=== PATIENT | male | born 1945 | race Caucasian/White ===

== ENCOUNTER 2018-07-04 04:14 | Observation (INO) | payer MEDICARE, OTHER ==
[2018-07-04] MEDS ORDERED: Sodium Chloride 0.9% 10 ML Syringe FLUSH PRN (04:41)
[2018-07-04] MEDS ORDERED: Sodium Chloride 0.9% 1,000 ML IV ONE (04:41)
--- NOTE | 2018-07-04 04:47 | EDM.PDOC ---
<Danielle Hutchins - Last Filed: 07/04/18 06:36> ED HPI GENERAL MEDICAL PROBLEM - General Chief Complaint: General Stated Complaint: dizzy, weak, constipation Time Seen by Provider: 07/04/18 04:30 Source of Information: Reports: Patient, Family History Limitations: Reports: No Limitations - History of Present Illness INITIAL COMMENTS - FREE TEXT/NARRATIVE: Patient comes into the emergency department with complaint of constipation and urinary retention. Patient states he recently had a tooth extracted and has been placed on amoxicillin and hydrocodone. He's has noticed a decrease in his stool output as well as them being more hard and difficulty to pass. Is also noted over the course the last couple days a he's been having more difficulty urinating- he states it does burning and he does have some urgency with a significant amount hesitation. Denies any fevers, chest pain, shortness of breath, headache, nausea, vomiting, or swelling in lower extremities. Onset: Gradual Lower Abdomen Pain Score (Numeric/FACES): 5 - Related Data Allergies Allergy/AdvReac Type Severity Reaction Status Date / Time No Known Allergies Allergy Verified 07/04/18 04:15 Home Meds: Home Meds Carvedilol 3.125 mg PO DAILY 07/04/18 [History] Losartan [Cozaar] 25 mg PO DAILY 07/04/18 [History] Spironolactone [Aldactone] 25 mg PO DAILY 07/04/18 [History] Past Medical History Cardiovascular History: Reports: High Cholesterol, Hypertension Gastrointestinal History: Reports: Hiatal Hernia Other Gastrointestinal History: Abnormal liver function test Musculoskeletal History: Reports: Back Pain, Chronic Psychiatric History: Reports: Anxiety, Depression Other Dermatologic History: Rosacea Social & Family History - Family History Family Medical History: Noncontributory - Tobacco Use Smoking Status *Q: Former Smoker Used Tobacco, but Quit: Yes Month/Year Tobacco Last Used: 1979 - Caffeine Use Caffeine Use: Reports: Coffee ED ROS GENERAL - Review of Systems Review Of Systems: See Below Constitutional: Reports: Weakness, Fatigue, Decreased Appetite HEENT: Reports: No Symptoms Respiratory: Reports: No Symptoms Cardiovascular: Reports: No Symptoms Endocrine: Reports: No Symptoms GI/Abdominal: Reports: Abdominal Pain, Constipation, Distension. Denies: Nausea , Vomiting : Reports: Pain, Urgency, Urinary Retention Musculoskeletal: Reports: No Symptoms Skin: Reports: No Symptoms Neurological: Reports: No Symptoms Psychiatric: Reports: No Symptoms Hematologic/Lymphatic: Reports: No Symptoms Immunologic: Reports: No Symptoms ED EXAM, GENERAL - Physical Exam Exam: See Below Exam Limited By: No Limitations General Appearance: Alert, WD/WN, No Apparent Distress Respiratory/Chest: No Respiratory Distress, Lungs Clear, Normal Breath Sounds, No Accessory Muscle Use, Chest Non-Tender Cardiovascular: Normal Peripheral Pulses, Regular Rate, Rhythm GI/Abdominal: Distended, Tender, Abnormal Bowel Sounds Back Exam: Normal Inspection, Full Range of Motion Extremities: Normal Inspection, Normal Range of Motion, Non-Tender, Normal Capillary Refill Neurological: Alert, Oriented, Normal Cognition Psychiatric: Normal Affect, Normal Mood Skin Exam: Warm, Dry, Intact, Normal Color, No Rash Course - Vital Signs Last Recorded V/S: Last Vital Signs Temp 35.1 C L 07/04/18 05:58 Pulse 70 07/04/18 05:58 Resp 18 07/04/18 05:58 BP 113/67 07/04/18 05:58 Pulse Ox 99 07/04/18 05:58 - Orders/Labs/Meds Orders: Active Orders 24 hr Category Date Time Status Admission Status [Patient Status] [ADT] Routine ADT 07/04/18 07:28 Ordered Abdomen Pelvis wo Cont [CT] Stat Exams 07/04/18 04:40 Taken Sodium Chloride 0.9% [Saline Flush] Med 07/04/18 04:41 Active 10 ml FLUSH ASDIRECTED PRN Peripheral IV Insertion Adult [OM.PC] Stat Oth 07/04/18 04:41 Ordered Medication Orders Sodium Chloride (Saline Flush) 10 ml FLUSH ASDIRECTED PRN PRN Reason: Keep Vein Open Labs: Laboratory Tests 07/04/18 07/04/18 07/04/18 Range/Units 04:50 05:29 05:29 WBC 2.2 L (4.0-10.0) x10^3/uL RBC 3.46 L (4.5-6.0) x10^6/uL Hgb 10.4 L D (14.0-18.0) g/dL Hct 28.4 L (40.0-52.0) % MCV 82.1 D (78.0-93.0) fL MCH 30.1 (26.0-32.0) pg MCHC 36.6 H (32.0-36.0) g/dL RDW Coeff of Hedy 12.1 (10.0-15.0) % Plt Count 242 D (130-400) x10^3/uL Neut % (Auto) 49.0 L (50.0-80.0) % Lymph % (Auto) 35.2 (25.0-50.0) % [place] % (Auto) 12.5 H (2.0-11.0) % Eos % (Auto) 2.8 (0.0-4.0) % Baso % (Auto) 0.5 (0.2-1.2) % Sodium 122 L* (136-145) mmol/L Potassium 4.5 D (3.5-5.1) mmol/L Chloride 88 L (98-107) mmol/L Carbon Dioxide 26 D (21-32) mmol/L Anion Gap 12.5 (10-20) mmol/L BUN 9 (7-18) mg/dL Creatinine 0.8 (0.70-1.30) mg/dL Est Cr Clr Drug Dosing 63.41 mL/min Estimated GFR (MDRD) > 60 Glucose 94 (74-106) mg/dL Calcium 9.2 (8.5-10.1) mg/dL Corrected Calcium 9.84 (8.5-10.1) mg/dL Total Bilirubin 0.8 (0.2-1.0) mg/dL AST 25 (15-37) U/L ALT 25 (16-63) U/L Alkaline Phosphatase 138 H (46-116) U/L Total Protein 7.0 (6.4-8.2) g/dL Albumin 3.2 L (3.4-5.0) g/dL Globulin 3.8 Albumin/Globulin Ratio 0.84 Urine Color Yellow (YELLOW) Urine Appearance Clear (CLEAR) Urine pH 7.0 (5.0-8.0) Ur Specific [place] 1.010 Urine Protein Negative (NEGATIVE) mg/dL Urine Glucose (UA) Negative (NEGATIVE) mg/dL Urine Ketones Negative (NEGATIVE) mg/dL Urine Occult Blood Negative (NEGATIVE) Urine Nitrite Negative (NEGATIVE) Urine Bilirubin Negative (NEGATIVE) Urine Urobilinogen 0.2 (0.2) EU/dL Ur Leukocyte Esterase Negative (NEGATIVE) Meds: Medications Generic Name Dose Route Start Last Admin Trade Name Cedric PRN Reason Stop Dose Admin Sodium Chloride 10 ml 07/04/18 04:41 Saline Flush FLUSH ASDIRECTED PRN Keep Vein Open Discontinued Medications Generic Name Dose Route Start Last Admin Trade Name Freq PRN Reason Stop Dose Admin Sodium Chloride 1,000 mls @ 1,000 mls/hr 07/04/18 04:41 07/04/18 06:07 Normal Saline IV 07/04/18 05:40 1,000 mls/hr ONETIME ONE Administration Departure - Departure Disposition: Refer to Observation Clinical Impression: Hyponatremia, Acute urinary retention Hypotension Qualifiers: Hypotension type: unspecified hypotension type Qualified Code(s): I95.9 - Hypotension, unspecified Constipated Qualifiers: Constipation type: unspecified constipation type Qualified Code(s): K59.00 - Constipation, unspecified - Discharge Information - Problem List Review Problem List Initiated/Reviewed/Updated: Yes - My Orders Last 24 Hours: My Active Orders 07/04/18 07:28 Admission Status [Patient Status] [ADT] Routine - Assessment/Plan Admission H&P: Please use this note as an admission H&P Last 24 Hours: My Active Orders 07/04/18 07:28 Admission Status [Patient Status] [ADT] Routine Assessment:: 1. urinary retention with urgency and hesitation 2. abdominal pain 3. constipation 4. hypotension Plan: 1. Labs completed in the ER. results reviewed with the pt 2. CT scan completed in the ER. Results reviewed with the pt 3. Bladder scan completed in ER >400mls found 4. Straight cath and UA completed 5. IV fluids given for patients for initial hypotension and hyponatremia . <Teddy Browning - Last Filed: 07/04/18 07:35> Course - Radiology Interpretation Free Text/Narrative:: CT Abd/Pelvis: No acute abdominal pathology is identified; moderate fecal burden ; no colon lesion identified See scanned report in EMR for details CT Results Date: 07/04/18 CT Results Time: 06:38 Departure - Departure Time of Disposition: 07:33 Condition: Good (hyponatrem) - Assessment/Plan Admission H&P: Please use this note as an admission H&P Assessment:: Hyponatremia Plan: Patient will be admitted Observation for IVF hydration, GI meds. Anticipation of admission <48 hours. Bladder scan PRN for urinary retention. Recheck labs in AM. If stable, will probably discharge. Monitor vitals for hypotension.
[2018-07-04 05:54] LABS: CHLORIDE,CL 88 mmol/L (98-107)
[2018-07-04 05:56] LABS: ANION GAP 12.5 mmol/L (10-20); SODIUM,NA 122 mmol/L (136-145)
[2018-07-04] MEDS ORDERED: Ondansetron 4 MG Tab.DIS PO PRN (07:52)
[2018-07-04] MEDS ORDERED: Magnesium Hydroxide 400 MG/5 ML Susp 30 ML Cup PO PRN (07:52)
[2018-07-04] MEDS ORDERED: Polyethylene Glycol 3350 Powder 17 GM Packet PO PRN (07:52)
[2018-07-04] MEDS ORDERED: Docusate Sodium 100 MG Cap PO PRN (07:52)
[2018-07-04] MEDS ORDERED: Ondansetron 4 MG/2 ML SDV IVPUSH PRN (07:58)
[2018-07-04] MEDS ORDERED: Metoclopramide 10 MG/2 ML SDV IVPUSH ONE ×2 (07:59→15:41)
[2018-07-04] MEDS: Sodium Chloride 0.9% 1,000 ML IV SCH ×2 (08:29→18:20)
--- NOTE | 2018-07-04 10:05 | CT ---
[id number] CT/CT Abdomen Pelvis WO IV EXAM: ABDOMEN AND PELVIS CT WITHOUT CONTRAST INDICATION: Constipation, urinary retention and abdominal pain. COMPARISON: January 16, 2018. DISCUSSION: Minimal residual sliding type hiatus hernia with correction of a large hiatus hernia and gastric volvulus. Mild to moderately elevated stool volume throughout the colon. There are few fluid-filled nondilated distal small bowel loops, a nonspecific finding. 4.5 mm indeterminate noncalcified right lower lobe pulmonary nodule (image 3 series 2). This was not included in [id number] the prior examination. The gallbladder, pancreas, liver, spleen, adrenal glands, kidneys and appendix are unremarkable. No adenopathy, free air free fluid. Degenerative changes in the spine with a mild to moderate convex right mid lumbar curvature. IMPRESSION: 1. Mild to moderately elevated colonic stool volume. Denton Yang MD 07/04/18 [id number] Thank you for allowing us to participate in the care of your patient.
[2018-07-04] MEDS ORDERED: Magnesium Citrate Solution 296 ML Bottle PO ONE (15:42)
[2018-07-05] MEDS: Sodium Chloride 0.9% 1,000 ML IV SCH ×2 (04:26→15:04)
[2018-07-05 07:58] LABS: CHLORIDE,CL 94 mmol/L (98-107)
[2018-07-05 08:13] LABS: ANION GAP 11.2 mmol/L (10-20); SODIUM,NA 126 mmol/L (136-145)
[2018-07-05] MEDS ORDERED: Losartan 25 MG Tab PO SCH (09:00)
[2018-07-05] MEDS: Multivitamins with Iron/Calcium/Folic Acid/Minerals Tab PO SCH (09:39)
[2018-07-05] MEDS: Carvedilol 12.5 MG Tab PO SCH ×2 (09:39→20:53)
[2018-07-05] MEDS: Thiamine 100 MG Tab PO SCH ×2 (09:40→20:54)
[2018-07-05] MEDS: Magnesium Oxide 400 MG Tab PO SCH (09:40)
--- NOTE | 2018-07-05 10:11 | PCM.PN ---
- General Info Date of Service: 07/05/18 Admission Dx/Problem (Free Text): Patient comes into the emergency department with complaint of constipation and urinary retention. Patient states he recently had a tooth extracted and has been placed on amoxicillin and hydrocodone. He's has noticed a decrease in his stool output as well as them being more hard and difficulty to pass. Is also noted over the course the last couple days a he's been having more difficulty urinating- he states it does burning and he does have some urgency with a significant amount hesitation. Denies any fevers, chest pain, shortness of breath, headache, nausea, vomiting, or swelling in lower extremities. Subjective Update: Patient states he is feeling better. He started having BM's last night after PO meds. He states his urination has increased. He has not been out of bed ambulating. He is currently not having any pain. He continues to have some colicky abdominal pain. Denies any fever or chills. He is tolerating his diet ok , but needs to eat soft foods 2/2 recent dental extractions. Otherwise, patient offers no specific complaints. Functional Status: Reports: Pain Controlled, Tolerating Diet, Urinating. Denies : New Symptoms Pain Score: 0 - Review of Systems General: Denies: Fever, Chills Pulmonary: Denies: Shortness of Breath, Cough Cardiovascular: Denies: Chest Pain, Palpitations Gastrointestinal: Reports: Abdominal Pain, Constipation. Denies: Nausea, Vomiting Genitourinary: Reports: Retention Skin: Reports: No Symptoms Neurological: Reports: No Symptoms - Patient Data Vitals - Most Recent: Last Vital Signs Temp 36.7 C 07/05/18 06:00 Pulse 69 07/05/18 09:39 Resp 16 07/05/18 06:00 BP 111/66 07/05/18 09:39 Pulse Ox 100 07/05/18 06:00 Weight - Most Recent: 56.699 kg I&O - Last 24 Hours: Intake & Output 07/04/18 07/05/18 07/05/18 22:59 06:59 14:59 Intake Total 1237 1555 Output Total 300 300 Balance 937 1255 Lab Results Last 24 Hours: Laboratory Results - last 24 hr 07/05/18 07/05/18 Range/Units 07:33 07:33 WBC 3.2 L (4.0-10.0) x10^3/uL RBC 3.16 L (4.5-6.0) x10^6/uL Hgb 9.4 L (14.0-18.0) g/dL Hct 26.3 L (40.0-52.0) % MCV 83.2 (78.0-93.0) fL MCH 29.7 (26.0-32.0) pg MCHC 35.7 (32.0-36.0) g/dL RDW Coeff of Hedy 12.3 (10.0-15.0) % Plt Count 221 (130-400) x10^3/uL Neut % (Auto) 61.2 (50.0-80.0) % Lymph % (Auto) 27.6 (25.0-50.0) % [place] % (Auto) 10.3 (2.0-11.0) % Eos % (Auto) 0.6 (0.0-4.0) % Baso % (Auto) 0.3 (0.2-1.2) % Sodium 126 L* (136-145) mmol/L Potassium 4.2 (3.5-5.1) mmol/L Chloride 94 L (98-107) mmol/L Carbon Dioxide 25 (21-32) mmol/L Anion Gap 11.2 (10-20) mmol/L BUN 7 (7-18) mg/dL Creatinine 0.6 L (0.70-1.30) mg/dL Est Cr Clr Drug Dosing 86.62 mL/min Estimated GFR (MDRD) > 60 Glucose 82 (74-106) mg/dL Calcium 8.2 L (8.5-10.1) mg/dL Med Orders - Current: Current Medications Carvedilol (Coreg) 12.5 mg PO BID JAYESH Last Admin: 07/05/18 09:39 Dose: 12.5 mg Docusate Sodium (Colace) 100 mg PO BID PRN PRN Reason: Constipation Last Admin: 07/04/18 08:38 Dose: 100 mg Sodium Chloride (Normal Saline) 1,000 mls @ 100 mls/hr IV ASDIRECTED JAYESH Last Admin: 07/05/18 04:26 Dose: 100 mls/hr Losartan Potassium (Cozaar) 25 mg PO DAILY [facility] Magnesium Hydroxide (Milk Of Magnesia) 30 ml PO Q12H PRN PRN Reason: Constipation Magnesium Oxide (Magnesium Oxide) 400 mg PO DAILY [facility] Last Admin: 07/05/18 09:40 Dose: 400 mg Multivitamins/Minerals (Thera M Plus) 1 tab PO DAILY [facility] Last Admin: 07/05/18 09:39 Dose: 1 tab Ondansetron HCl (Zofran Odt) 4 mg PO Q6H PRN PRN Reason: nausea, able to take PO Ondansetron HCl (Zofran) 4 mg IVPUSH Q8H PRN PRN Reason: Nausea Polyethylene Glycol (Miralax) 17 gm PO DAILY PRN PRN Reason: Constipation Last Admin: 07/04/18 08:38 Dose: 17 gm Sodium Chloride (Saline Flush) 10 ml FLUSH ASDIRECTED PRN PRN Reason: Keep Vein Open Thiamine HCl (Vitamin B-1) 100 mg PO BID [facility] Last Admin: 07/05/18 09:40 Dose: 100 mg Discontinued Medications Sodium Chloride (Normal Saline) 1,000 mls @ 1,000 mls/hr IV ONETIME ONE Stop: 07/04/18 05:40 Last Admin: 07/04/18 06:07 Dose: 1,000 mls/hr Magnesium Citrate (Citrate Of Magnesia) 296 ml PO ONETIME ONE Stop: 07/04/18 15:43 Last Admin: 07/04/18 17:15 Dose: 296 ml Metoclopramide HCl (Reglan) 10 mg IVPUSH ONETIME ONE Stop: 07/04/18 08:00 Last Admin: 07/04/18 08:34 Dose: 10 mg Metoclopramide HCl (Reglan) 10 mg IVPUSH ONETIME ONE Stop: 07/04/18 15:42 Last Admin: 07/04/18 17:20 Dose: 10 mg - Exam Quality Assessment: No: Skin Breakdown General: Alert, Oriented, Cooperative, No Acute Distress Lungs: Clear to Auscultation, Normal Respiratory Effort Cardiovascular: Regular Rate, Regular Rhythm GI/Abdominal Exam: Soft, Tender (generalized mild tenderness), Abnormal Bowel Sounds (Hypoactive) Peripheral Pulses: 2+: Radial (L), Radial (R) Skin: Warm, Dry, Intact Neurological: No New Focal Deficit - Problem List & Annotations (1) Acute urinary retention SNOMED Code(s): 229139818 Code(s): R33.8 - OTHER RETENTION OF URINE Status: Acute Priority: Medium Current Visit: Yes (2) Constipated SNOMED Code(s): 93518014 Code(s): K59.00 - CONSTIPATION, UNSPECIFIED Status: Acute Priority: Medium Current Visit: Yes Qualifiers: Constipation type: unspecified constipation type Qualified Code(s): K59.00 - Constipation, unspecified (3) Hyponatremia SNOMED Code(s): 33330864 Code(s): E87.1 - HYPO-OSMOLALITY AND HYPONATREMIA Status: Acute Priority : Medium Current Visit: Yes (4) Hypotension SNOMED Code(s): 96689500 Code(s): I95.9 - HYPOTENSION, UNSPECIFIED Status: Acute Priority: High Current Visit: Yes Qualifiers: Hypotension type: unspecified hypotension type Qualified Code(s): I95.9 - Hypotension, unspecified (5) Abdominal pain SNOMED Code(s): 08956232 Code(s): R10.9 - UNSPECIFIED ABDOMINAL PAIN Status: Acute Priority: High Current Visit: Yes Qualifiers: Abdominal location: generalized Qualified Code(s): R10.84 - Generalized abdominal pain - Problem List Review Problem List Initiated/Reviewed/Updated: Yes - My Orders Last 24 Hours: My Active Orders 07/05/18 09:00 Carvedilol [Coreg] 12.5 mg PO BID Losartan [Cozaar] 25 mg PO DAILY Thiamine [Vitamin B-1] 100 mg PO BID 07/05/18 09:15 Magnesium Oxide 400 mg PO DAILY Multivitamins w-Iron/Ca/FA/Min [Thera M Plus] 1 tab PO DAILY - Assessment Assessment:: Abdominal Pain Urinary retention Hyponatremia Hypotension Constipation - Plan Plan:: Continue with IVF to increase NA levels. Needs to get out of bed and ambulation several times a day. Continue with bowel meds. Encourage PO intake. Anticipate discharge home tomorrow if NA is normal. Code III. Will to transfer if needs arise.
[2018-07-06] MEDS: Sodium Chloride 0.9% 1,000 ML IV SCH ×2 (00:19→10:14)
[2018-07-06 07:09] LABS: CHLORIDE,CL 93 mmol/L (98-107)
[2018-07-06 07:39] LABS: ANION GAP 10.9 mmol/L (10-20); SODIUM,NA 124 mmol/L (136-145)
[2018-07-06] MEDS: Thiamine 100 MG Tab PO SCH (07:50)
[2018-07-06] MEDS: Magnesium Oxide 400 MG Tab PO SCH (07:50)
[2018-07-06] MEDS: Multivitamins with Iron/Calcium/Folic Acid/Minerals Tab PO SCH (07:50)
[2018-07-06] MEDS: Carvedilol 12.5 MG Tab PO SCH (07:51)
[2018-07-06] MEDS ORDERED: Losartan 50 MG Tab PO SCH (08:00)
--- NOTE | 2018-07-06 14:24 | PCM.DCSUM1 ---
Discharge Summary - Hospital Course HPI Initial Comments: Patient comes into the emergency department 2 days ago for complaints of constipation and urinary retention. Patient states he recently had a tooth extracted and has been placed on amoxicillin and hydrocodone. He's has noticed a decrease in his stool output as well as them being more hard and difficulty to pass. Is also noted over the course the last couple days a he's been having more difficulty urinating- he states it does burning and he does have some urgency with a significant amount hesitation. Denies any fevers, chest pain, shortness of breath, headache, nausea, vomiting, or swelling in lower extremities. Patient was admitted for acute on chronic hyponatremia, dehydration , constipation, and urinary retention. Diagnosis: Stroke: No Modified [place] Scale: No Symptoms at All Modified [place] Scale Score: 0 - Discharge Data Discharge Date: 07/06/18 Discharge Disposition: Home, Self-Care 01 Condition: Good - Discharge Diagnosis/Problem(s) (1) Acute urinary retention SNOMED Code(s): 245756636 ICD Code: R33.8 - OTHER RETENTION OF URINE Status: Resolved Priority: Medium Current Visit: Yes (2) Constipated SNOMED Code(s): 87860064 ICD Code: K59.00 - CONSTIPATION, UNSPECIFIED Status: Chronic Priority: Medium Current Visit: Yes Qualifiers: Constipation type: unspecified constipation type Qualified Code(s): K59.00 - Constipation, unspecified (3) Hyponatremia SNOMED Code(s): 43343010 ICD Code: E87.1 - HYPO-OSMOLALITY AND HYPONATREMIA Status: Chronic Priority: Medium Current Visit: Yes (4) Hypotension SNOMED Code(s): 38281559 ICD Code: I95.9 - HYPOTENSION, UNSPECIFIED Status: Resolved Priority: High Current Visit: Yes Qualifiers: Hypotension type: unspecified hypotension type Qualified Code(s): I95.9 - Hypotension, unspecified (5) Abdominal pain SNOMED Code(s): 99348184 ICD Code: R10.9 - UNSPECIFIED ABDOMINAL PAIN Status: Resolved Priority: High Current Visit: Yes Qualifiers: Abdominal location: generalized Qualified Code(s): R10.84 - Generalized abdominal pain - Patient Summary/Data Operative Procedure(s) Performed: None Labs Pending at D/C: None Recommended Follow-up Testing/Procedures: Labs at follow up visit with PCP Planned Operative Procedure(s) after DC: None Hospital Course: Patient remained hemodynamically stable and afebrile. Blood pressures remained low, so Aldactone was stopped. Patient continued with Coreg and Cozaar. Patient was given Mag Citrate, MiraLax, and other BM meds which resolved his constipation. No focal neurological deficits. No chest pain or SOB. Abdominal pain resolved. Patient urinating well at time of discharge. No issues with diet , still needed soft foods due to recent dental extractions. Ambulating back to baseline. Sodium is chronically low and patient did not have any hyponatremic symptoms. Will have this addressed again at follow up visit with PCP. Other blood work remained stable. - Patient Instructions Diet: Heart Healthy Diet Activity: As Tolerated, Rest and Relax Today Driving: Do Not Drive Showering/Bathing: May Shower Notify Provider of: Fever, Increased Pain, Nausea and/or Vomiting - Discharge Plan *PRESCRIPTION DRUG MONITORING PROGRAM REVIEWED*: Not Applicable *COPY OF PRESCRIPTION DRUG MONITORING REPORT IN PATIENT LU: Not Applicable Prescriptions/Med Rec: Polyethylene Glycol 3350 [MiraLAX] 1 packet PO DAILY PRN 30 Days #1 box PRN Reason: Constipation Home Medications: Home Meds Carvedilol 1 tab PO BID 07/04/18 [History] Magnesium Oxide [Magnesium] 400 mg PO DAILY 07/04/18 [History] Multivitamin [Multi-Vitamin Daily] 1 each PO DAILY 07/04/18 [History] Thiamine [Vitamin B-1] 100 mg PO BID 07/04/18 [History] Losartan Potassium [Cozaar] 50 mg PO DAILY 07/05/18 [History] Polyethylene Glycol 3350 [MiraLAX] 1 packet PO DAILY PRN 30 Days #1 box [Rx] Oxygen Therapy Mode: Room Air Patient Handouts: Constipation, Adult, Hyponatremia Referrals: Lata Rashid NP [Primary Care Provider] - 07/10/18 11:00 am (FOLLOW UP APPOINTMENT WITH LATA RASHID, TUESDAY JULY 10, 2018 AT 11:00 AM AT THE [facility]) - Discharge Summary/Plan Comment DC Time >30 min.: No Discharge Summary/Plan Comment: Patient will be discharged home today. Stop Aldactone. Continue other meds the same. Start daily MiraLax. Will have patient follow up with Lata Rashid this Friday for a recheck. Recommend rechecking BMP during f/u appt. - General Info Date of Service: 07/06/18 Admission Dx/Problem (Free Text: Patient comes into the emergency department with complaint of constipation and urinary retention. Patient states he recently had a tooth extracted and has been placed on amoxicillin and hydrocodone. He's has noticed a decrease in his stool output as well as them being more hard and difficulty to pass. Is also noted over the course the last couple days a he's been having more difficulty urinating- he states it does burning and he does have some urgency with a significant amount hesitation. Denies any fevers, chest pain, shortness of breath, headache, nausea, vomiting, or swelling in lower extremities. Subjective Update: Patient states he is feeling better. He started having BM's last night after PO meds. He states his urination has increased. He has not been out of bed ambulating. He is currently not having any pain. He continues to have some colicky abdominal pain. Denies any fever or chills. He is tolerating his diet ok , but needs to eat soft foods 2/2 recent dental extractions. Otherwise, patient offers no specific complaints. Functional Status: Reports: Pain Controlled, Tolerating Diet, Ambulating, Urinating. Denies: New Symptoms Numeric/FACES Score: 0 - Review of Systems General: Denies: Fever, Chills Pulmonary: Denies: Shortness of Breath, Cough Cardiovascular: Denies: Chest Pain, Palpitations Gastrointestinal: Denies: Abdominal Pain, Nausea, Vomiting Skin: Reports: No Symptoms Neurological: Reports: No Symptoms - Patient Data Vitals - Most Recent: Last Vital Signs Temp 36.4 C 07/06/18 13:30 Pulse 67 07/06/18 13:30 Resp 14 07/06/18 13:30 BP 99/58 L 07/06/18 13:30 Pulse Ox 100 07/06/18 13:30 Weight - Most Recent: 56.699 kg I&O - Last 24 hours: Intake & Output 07/05/18 07/06/18 07/06/18 22:59 06:59 14:59 Intake Total 1816 1897 360 Output Total 1100 1000 Balance 716 897 360 Lab Results - Last 24 hrs: Laboratory Results - last 24 hr 07/06/18 07/06/18 07/06/18 Range/Units 06:30 06:30 06:30 WBC 3.8 L (4.0-10.0) x10^3/uL RBC 3.06 L (4.5-6.0) x10^6/uL Hgb 9.1 L (14.0-18.0) g/dL Hct 25.8 L (40.0-52.0) % MCV 84.3 (78.0-93.0) fL MCH 29.7 (26.0-32.0) pg MCHC 35.3 (32.0-36.0) g/dL RDW Coeff of Hedy 12.4 (10.0-15.0) % Plt Count 190 (130-400) x10^3/uL Neut % (Auto) 63.1 (50.0-80.0) % Lymph % (Auto) 23.1 L (25.0-50.0) % [place] % (Auto) 12.0 H (2.0-11.0) % Eos % (Auto) 1.3 (0.0-4.0) % Baso % (Auto) 0.5 (0.2-1.2) % Sodium 124 L* (136-145) mmol/L Potassium 3.9 (3.5-5.1) mmol/L Chloride 93 L (98-107) mmol/L Carbon Dioxide 24 (21-32) mmol/L Anion Gap 10.9 (10-20) mmol/L BUN 4 L (7-18) mg/dL Creatinine 0.5 L (0.70-1.30) mg/dL Est Cr Clr Drug Dosing 103.95 mL/min Estimated GFR (MDRD) > 60 Glucose 84 (74-106) mg/dL Calcium 8.0 L (8.5-10.1) mg/dL Phosphorus 2.9 (2.6-4.7) mg/dL Magnesium 1.8 (1.8-2.4) mg/dL Med Orders - Current: Current Medications Carvedilol (Coreg) 12.5 mg PO BID [facility] Last Admin: 07/06/18 07:51 Dose: 12.5 mg Docusate Sodium (Colace) 100 mg PO BID PRN PRN Reason: Constipation Last Admin: 07/04/18 08:38 Dose: 100 mg Sodium Chloride (Normal Saline) 1,000 mls @ 100 mls/hr IV ASDIRECTED [facility] Last Admin: 07/06/18 10:14 Dose: 100 mls/hr Losartan Potassium (Cozaar) 50 mg PO DAILY [facility] Last Admin: 07/06/18 07:50 Dose: 50 mg Magnesium Hydroxide (Milk Of Magnesia) 30 ml PO Q12H PRN PRN Reason: Constipation Magnesium Oxide (Magnesium Oxide) 400 mg PO DAILY [facility] Last Admin: 07/06/18 07:50 Dose: 400 mg Multivitamins/Minerals (Thera M Plus) 1 tab PO DAILY [facility] Last Admin: 07/06/18 07:50 Dose: 1 tab Ondansetron HCl (Zofran Odt) 4 mg PO Q6H PRN PRN Reason: nausea, able to take PO Ondansetron HCl (Zofran) 4 mg IVPUSH Q8H PRN PRN Reason: Nausea Pharmacy Consult (Consult To Pharmacy) 1 each .XX ASDIRECTED [facility] Polyethylene Glycol (Miralax) 17 gm PO DAILY PRN PRN Reason: Constipation Last Admin: 07/04/18 08:38 Dose: 17 gm Sodium Chloride (Saline Flush) 10 ml FLUSH ASDIRECTED PRN PRN Reason: Keep Vein Open Thiamine HCl (Vitamin B-1) 100 mg PO BID [facility] Last Admin: 07/06/18 07:50 Dose: 100 mg Discontinued Medications Sodium Chloride (Normal Saline) 1,000 mls @ 1,000 mls/hr IV ONETIME ONE Stop: 07/04/18 05:40 Last Admin: 07/04/18 06:07 Dose: 1,000 mls/hr Magnesium Citrate (Citrate Of Magnesia) 296 ml PO ONETIME ONE Stop: 07/04/18 15:43 Last Admin: 07/04/18 17:15 Dose: 296 ml Metoclopramide HCl (Reglan) 10 mg IVPUSH ONETIME ONE Stop: 07/04/18 08:00 Last Admin: 07/04/18 08:34 Dose: 10 mg Metoclopramide HCl (Reglan) 10 mg IVPUSH ONETIME ONE Stop: 07/04/18 15:42 Last Admin: 07/04/18 17:20 Dose: 10 mg - Exam Quality Assessment: Denies: DVT Prophylaxis, Skin Breakdown General: Reports: Alert, Oriented, Cooperative, No Acute Distress Lungs: Reports: Clear to Auscultation, Normal Respiratory Effort Cardiovascular: Reports: Regular Rate, Regular Rhythm GI/Abdominal Exam: Normal Bowel Sounds, Soft, Non-Tender Skin: Reports: Warm, Dry, Intact Neurological: Reports: No New Focal Deficit *Q Meaningful Use (DIS) - VTE *Q VTE Mechanical Contraindications *Q: At Risk for Falls
== END 2018-07-06 15:45 | disposition home or self-care (01) ==
LOC: VM.ED 04:14 → VM.MS 07:28
PROVIDERS: ADMIT Nurse Practitioner Family; ATTEND Nurse Practitioner Family
DX: K59.09 Other constipation (principal); E87.1 Hypo-osmolality and hyponatremia; E86.0 Dehydration; I95.9 Hypotension, unspecified; R33.9 Retention of urine, unspecified; R39.15 Urgency of urination; R10.84 Generalized abdominal pain; R39.11 Hesitancy of micturition; I10 Essential (primary) hypertension; E78.00 Pure hypercholesterolemia, unspecified; Z87.891 Personal history of nicotine dependence; Z79.899 Other long term (current) drug therapy
CPT/HCPCS: 36415; 51701; 51798; 74176; 80048; 80053; 81003; 83735; 84100; 85025; 96360; 96361; 99284; A9270; J2765; J7030; 99217; 99220; 99225

== ENCOUNTER 2018-07-12 21:14 | Emergency (ER) | payer MEDICARE, OTHER ==
--- NOTE | 2018-07-12 21:20 | EDM.PDOC ---
ED HPI GENERAL MEDICAL PROBLEM - General Chief Complaint: Genitourinary Problem Stated Complaint: Unable to urinate Time Seen by Provider: 07/12/18 21:16 - History of Present Illness INITIAL COMMENTS - FREE TEXT/NARRATIVE: Patient presents to the ED at [facility] complaining of not being able to void urine. He states the last time he urinated was a day and a half ago. He has a history of urination problems in the past. He can not exactly remembers what those issues are. He has seen a Urologist in the past. He states his lower pelvic area "feels full." Onset Date: 07/11/18 - Related Data Allergies Allergy/AdvReac Type Severity Reaction Status Date / Time No Known Allergies Allergy Verified 07/04/18 04:15 Home Meds: Home Meds Carvedilol 1 tab PO BID 07/04/18 [History] Magnesium Oxide [Magnesium] 400 mg PO DAILY 07/04/18 [History] Multivitamin [Multi-Vitamin Daily] 1 each PO DAILY 07/04/18 [History] Thiamine [Vitamin B-1] 100 mg PO BID 07/04/18 [History] Losartan Potassium [Cozaar] 50 mg PO DAILY 07/05/18 [History] Polyethylene Glycol 3350 [MiraLAX] 1 packet PO DAILY PRN 30 Days #1 box [Rx] Past Medical History HEENT History: Reports: Cataract Cardiovascular History: Reports: High Cholesterol, Hypertension Gastrointestinal History: Reports: Hiatal Hernia Other Gastrointestinal History: Abnormal liver function test Musculoskeletal History: Reports: Back Pain, Chronic, Fracture Other Musculoskeletal History: Ankle FX Psychiatric History: Reports: Anxiety, Depression Other Dermatologic History: Rosacea - Past Surgical History HEENT Surgical History: Reports: Eye Surgery, Retinal Other HEENT Surgeries/Procedures: difficulty seeing out of right eye GI Surgical History: Reports: Other (See Below) Other GI Surgeries/Procedures: HX h hernia repair with G-tube in 01/2018 G tube removed Social & Family History - Family History Family Medical History: Noncontributory - Caffeine Use Caffeine Use: Reports: Coffee ED ROS GENERAL - Review of Systems Review Of Systems: See Below Constitutional: Denies: Fever, Chills Respiratory: Denies: Shortness of Breath, Cough Cardiovascular: Denies: Chest Pain, Palpitations GI/Abdominal: Denies: Abdominal Pain, Nausea, Vomiting : Reports: Pain, Urinary Retention Skin: Reports: No Symptoms Neurological: Reports: No Symptoms ED EXAM, RENAL/ - Physical Exam Exam: See Below Exam Limited By: No Limitations General Appearance: Alert, No Apparent Distress Respiratory/Chest: No Respiratory Distress, Lungs Clear, Normal Breath Sounds Cardiovascular: Normal Peripheral Pulses, Regular Rate, Rhythm GI/Abdominal: Normal Bowel Sounds, Soft, Tender (lower pelvic) Neurological: Alert, Oriented Skin Exam: Warm, Dry, Intact, Normal Color Course - Orders/Labs/Meds Orders: Active Orders 24 hr Category Date Time Status Bladder Scan [RC] ONETIME Care 07/12/18 21:18 Active Hodge Catheter Insertion [Insert Urinary Catheter] [OM. Care 07/12/18 21:43 Ordered PC] Stat Labs: Laboratory Tests 07/12/18 Range/Units 21:43 Urine Color Yellow (YELLOW) Urine Appearance Clear (CLEAR) Urine pH 8.0 (5.0-8.0) Ur Specific [place] 1.015 Urine Protein Negative (NEGATIVE) mg/dL Urine Glucose (UA) Negative (NEGATIVE) mg/dL Urine Ketones Negative (NEGATIVE) mg/dL Urine Occult Blood Negative (NEGATIVE) Urine Nitrite Negative (NEGATIVE) Urine Bilirubin Negative (NEGATIVE) Urine Urobilinogen 0.2 (0.2) EU/dL Ur Leukocyte Esterase Negative (NEGATIVE) Departure - Departure Time of Disposition: 21:55 Disposition: Home, Self-Care 01 Condition: Good Clinical Impression: Acute urinary retention, Status post insertion of Hodge catheter - Discharge Information *PRESCRIPTION DRUG MONITORING PROGRAM REVIEWED*: Not Applicable *COPY OF PRESCRIPTION DRUG MONITORING REPORT IN PATIENT LU: Not Applicable Instructions: Indwelling Urinary Catheter Care, Adult, Acute Urinary Retention , Male Referrals: Nina Peña [employer] [Ordering Only Provider] - Forms: ED Department Discharge Additional Instructions: 1. Stay well hydrated and rest 2. Hodge catheter will stay in place until seen by PCP 3. Make appointment to see Nina Peña for tomorrow - Problem List Review Problem List Initiated/Reviewed/Updated: Yes - My Orders Last 24 Hours: My Active Orders 07/12/18 21:18 Bladder Scan [RC] ONETIME 07/12/18 21:43 Hodge Catheter Insertion [Insert Urinary Catheter] [OM.PC] Stat - Assessment/Plan Last 24 Hours: My Active Orders 07/12/18 21:18 Bladder Scan [RC] ONETIME 07/12/18 21:43 Hodge Catheter Insertion [Insert Urinary Catheter] [OM.PC] Stat Assessment:: Acute Urinary Retention Plan: Will insert hodge catheter and add a leg bag. UA normal. Will have patient see PCP tomorrow as he needs a urology consult for urinary retention. Patient agrees with POC and wishes to proceed.
== END 2018-07-12 22:05 | disposition home or self-care (01) ==
LOC: VM.ED 21:14
DX: R33.8 Other retention of urine (principal); E78.00 Pure hypercholesterolemia, unspecified; I10 Essential (primary) hypertension; F41.9 Anxiety disorder, unspecified; F32.9 Major depressive disorder, single episode, unspecified; Z79.899 Other long term (current) drug therapy; Z96.0 Presence of urogenital implants
CPT/HCPCS: 51702; 51798; 81003; 99283

== ENCOUNTER 2022-12-22 09:07 | Emergency (ER) | payer MEDICARE, OTHER ==
[2022-12-22] MEDS ORDERED: Take Home: Amoxicillin/Clavulanate K 875-125 MG Tab, 2 Tab Pack PO ONE (09:19)
== END 2022-12-22 09:35 | disposition home or self-care (01) ==
LOC: VM.ED 09:07
DX: L08.9 Local infection of the skin and subcutaneous tissue, unspecified (principal); I10 Essential (primary) hypertension; Z79.899 Other long term (current) drug therapy
CPT/HCPCS: 99283; A9270

== ENCOUNTER 2023-01-12 21:00 | Emergency (ER) | payer MEDICARE, OTHER ==
[2023-01-12 22:12] VITALS: BP 128/75; PULSE 87
[2023-01-13 06:59] LABS: BACTERIA,URINE POC NOT SEEN (NOT SEEN); MUCUS,URINE POC NOT SEEN (NOT SEEN); RBC,URINE POC 0-5 /HPF (NOT SEEN); SQUAMOUS EPITHELIAL CELLS,UR P RARE /HPF (NOT SEEN); WBC,URINE POC 0-5 /HPF (NOT SEEN)
== END 2023-01-12 21:55 | disposition home or self-care (01) ==
LOC: VM.ED 21:00
DX: R33.9 Retention of urine, unspecified (principal); I10 Essential (primary) hypertension; E78.00 Pure hypercholesterolemia, unspecified; Z79.899 Other long term (current) drug therapy
CPT/HCPCS: 51701; 51798; 81015; 99283

== ENCOUNTER 2024-05-06 18:09 | Emergency (ER) | payer MEDICARE, OTHER ==
[2024-05-06 18:37] LABS: BASOPHILS PERCENT AUTO 0.1 % (0.2-1.2); EOSINOPHILS PERCENT AUTO 0.3 % (0.0-4.0); HEMOGLOBIN 11.5 g/dL (14.0-18.0); IMMATURE GRAN ABSOLUTE AUTO 0.02 x10^3/uL (0.00-0.07); LYMPHOCYTES ABSOLUTE AUTO 0.6 x10^3/uL (1.0-4.8); LYMPHOCYTES PERCENT AUTO 4.7 % (25.0-50.0); MEAN CORPUSCULAR HEMOGLOBIN 30.3 pg (26.0-32.0); MEAN CORPUSCULAR HGB CONC 35.9 g/dL (32.0-36.0); MEAN CORPUSCULAR VOLUME 84.2 fL (78.0-93.0); MONOCYTES ABSOLUTE AUTO 0.5 x10^3/uL (0.0-0.8); MONOCYTES PERCENT AUTO 4.1 % (2.0-11.0); NEUTROPHILS ABSOLUTE AUTO 10.7 x10^3/uL (1.8-7.7); NEUTROPHILS PERCENT AUTO 90.6 % (50.0-80.0); WHITE BLOOD CELL COUNT,WBC 11.8 x10^3/uL (4.0-10.0)
[2024-05-06 18:45] LABS: PLATELET COUNT,PLT 127 x10^3/uL (130-400)
[2024-05-06 18:50] LABS: APPEARANCE,URINE CLEAR (CLEAR); BILIRUBIN,URINE NEGATIVE (NEGATIVE); COLOR,URINE YELLOW (YELLOW); GLUCOSE,URINE NEGATIVE (NEGATIVE); KETONES,URINE NEGATIVE (NEGATIVE); LEUKOCYTE ESTERASE,URINE NEGATIVE (NEGATIVE); NITRITE,URINE NEGATIVE (NEGATIVE); OCCULT BLOOD,URINE NEGATIVE (NEGATIVE); PROTEIN,URINE NEGATIVE (NEGATIVE); UROBILINOGEN,URINE 0.2 EU/dL (0.2)
[2024-05-06 19:03] LABS: A/G RATIO 0.69; ALBUMIN 2.7 g/dL (3.4-5.0); BILIRUBIN TOTAL 1.5 mg/dL (0.2-1.0); CREATININE 0.9 mg/dL (0.70-1.30); EST CRCL DRUG DOSING (CG) 62.13 mL/min; POTASSIUM,K 4.9 mmol/L (3.5-5.1); PROTEIN TOTAL,TP 6.6 g/dL (6.4-8.2)
[2024-05-06 19:04] LABS: ANION GAP 8.9 mmol/L (5-15)
[2024-05-06] MEDS: Sodium Chloride 0.9% 1,000 ML IV ONE (20:25)
[2024-05-06] MEDS: Iopamidol 612 MG/ML 100 ML Bottle IVPUSH ONE (21:38)
[2024-05-06] MEDS: cefTRIAXone 2 GM Vial IVPUSH ONE (22:09)
[2024-05-06] MEDS: Azithromycin 500 MG in Sodium Chloride 0.9% 250 ML IV ONE (23:10)
== END 2024-05-07 00:05 | disposition short-term general hospital (02) ==
LOC: VM.ED 18:09
DX: G93.40 Encephalopathy, unspecified (principal); R33.9 Retention of urine, unspecified; J18.9 Pneumonia, unspecified organism; K44.9 Diaphragmatic hernia without obstruction or gangrene; I10 Essential (primary) hypertension; E78.5 Hyperlipidemia, unspecified
CPT/HCPCS: 36415; 51702; 70450; 71045; 80053; 81003; 83605; 85025; 87040; 96361; 96365; 96375; 99285; J0456; J0696; J7030; J7050; Q9967; 71260; 99284

== ENCOUNTER 2024-05-30 15:45 | Emergency (ER) | payer MEDICARE, OTHER ==
[2024-05-30 16:24] LABS: BASOPHILS PERCENT AUTO 0.8 % (0.2-1.2); EOSINOPHILS ABSOLUTE AUTO 0.1 x10^3/uL (0.0-0.5); EOSINOPHILS PERCENT AUTO 1.3 % (0.0-4.0); HEMATOCRIT 32.5 % (40.0-52.0); HEMOGLOBIN 11.7 g/dL (14.0-18.0); IMMATURE GRAN ABSOLUTE AUTO 0.02 x10^3/uL (0.00-0.07); LYMPHOCYTES ABSOLUTE AUTO 0.5 x10^3/uL (1.0-4.8); LYMPHOCYTES PERCENT AUTO 9.8 % (25.0-50.0); MEAN CORPUSCULAR VOLUME 83.3 fL (78.0-93.0); MONOCYTES ABSOLUTE AUTO 0.4 x10^3/uL (0.0-0.8); MONOCYTES PERCENT AUTO 7.9 % (2.0-11.0); NEUTROPHILS ABSOLUTE AUTO 4.2 x10^3/uL (1.8-7.7); NEUTROPHILS PERCENT AUTO 79.8 % (50.0-80.0); WHITE BLOOD CELL COUNT,WBC 5.2 x10^3/uL (4.0-10.0)
[2024-05-30 16:32] LABS: PLATELET COUNT,PLT 242 x10^3/uL (130-400)
[2024-05-30 16:44] LABS: APPEARANCE,URINE SLIGHTLY CLOUDY (CLEAR); BILIRUBIN,URINE NEGATIVE (NEGATIVE); COLOR,URINE LIGHT YELLOW (YELLOW); GLUCOSE,URINE NEGATIVE (NEGATIVE); KETONES,URINE NEGATIVE (NEGATIVE); LEUKOCYTE ESTERASE,URINE MODERATE (NEGATIVE); NITRITE,URINE NEGATIVE (NEGATIVE); OCCULT BLOOD,URINE MODERATE (NEGATIVE); PH,URINE 7.5 (5.0-8.0); PROTEIN,URINE NEGATIVE (NEGATIVE); UROBILINOGEN,URINE 0.2 EU/dL (0.2)
[2024-05-30 16:46] LABS: A/G RATIO 0.71; ALANINE AMINOTRANSFERASE,ALT 26 U/L (16-63); ALBUMIN 2.7 g/dL (3.4-5.0); ALKALINE PHOSPHATASE 119 U/L (46-116); ASPARTATE AMNIOTRANSFERASE,AST 25 U/L (15-37); BILIRUBIN TOTAL 1.1 mg/dL (0.2-1.0); BLOOD UREA NITROGEN,BUN 7 mg/dL (7-18); C-REACTIVE PROTEIN 1.09 mg/dL (<=0.50); CALCIUM 8.8 mg/dL (8.5-10.1); CARBON DIOXIDE,CO2 32 mmol/L (21-32); CHLORIDE,CL 89 mmol/L (98-107); CREATININE 0.8 mg/dL (0.70-1.30); GLUCOSE RANDOM 95 mg/dL (70-99); POTASSIUM,K 3.6 mmol/L (3.5-5.1); PROTEIN TOTAL,TP 6.5 g/dL (6.4-8.2)
[2024-05-30 16:50] LABS: ANION GAP 7.6 mmol/L (5-15); ESTIMATED GFR 89 mL/min (>=60)
[2024-05-30 16:51] LABS: SODIUM,NA 125 mmol/L (136-145)
[2024-05-30 16:53] LABS: BACTERIA,URINE RARE /HPF (NOT SEEN); RBC,URINE 0-5 /HPF (NOT SEEN); SQUAMOUS EPITHELIAL CELLS,UR RARE /HPF (NOT SEEN)
[2024-05-30 16:54] LABS: CALCIUM OXALATE CRYSTALS,URINE RARE /HPF (NOT SEEN); YEAST BUDDING,URINE MODERATE /HPF (NONE - FEW); YEAST HYPHAE,URINE FEW /HPF (NONE - FEW)
[2024-05-30] MEDS: Sodium Chloride 0.9% 1,000 ML IV ONE (16:54)
[2024-05-30] MEDS: Iopamidol 612 MG/ML 100 ML Bottle IVPUSH ONE (18:28)
[2024-05-30 19:00] VITALS: BP 148/97; PULSE 82
== END 2024-05-30 19:20 | disposition home or self-care (01) ==
LOC: VM.ED 15:45
DX: E87.1 Hypo-osmolality and hyponatremia (principal); R13.10 Dysphagia, unspecified; I10 Essential (primary) hypertension; E78.00 Pure hypercholesterolemia, unspecified; Z79.01 Long term (current) use of anticoagulants; Z79.899 Other long term (current) drug therapy
CPT/HCPCS: 36415; 70491; 71045; 80053; 81001; 82140; 83605; 85025; 86140; 87086; 87088; 87147; 96360; 99284; 99285-25; J7030; Q9967

== ENCOUNTER 2024-06-03 16:12 | Emergency (ER) | payer MEDICARE, OTHER ==
[2024-06-03 16:27] LABS: BASOPHILS PERCENT AUTO 0.2 % (0.2-1.2); EOSINOPHILS PERCENT AUTO 0.2 % (0.0-4.0); HEMATOCRIT 31.6 % (40.0-52.0); HEMOGLOBIN 11.1 g/dL (14.0-18.0); IMMATURE GRAN ABSOLUTE AUTO 0.02 x10^3/uL (0.00-0.07); LYMPHOCYTES ABSOLUTE AUTO 0.5 x10^3/uL (1.0-4.8); LYMPHOCYTES PERCENT AUTO 3.6 % (25.0-50.0); MEAN CORPUSCULAR HEMOGLOBIN 29.9 pg (26.0-32.0); MEAN CORPUSCULAR HGB CONC 35.1 g/dL (32.0-36.0); MEAN CORPUSCULAR VOLUME 85.2 fL (78.0-93.0); MONOCYTES ABSOLUTE AUTO 0.5 x10^3/uL (0.0-0.8); MONOCYTES PERCENT AUTO 3.9 % (2.0-11.0); NEUTROPHILS PERCENT AUTO 91.9 % (50.0-80.0); PLATELET COUNT,PLT 229 x10^3/uL (130-400); RED BLOOD CELL COUNT 3.71 x10^6/uL (4.5-6.0); WHITE BLOOD CELL COUNT,WBC 13.1 x10^3/uL (4.0-10.0)
[2024-06-03] MEDS: Sodium Chloride 0.9% 1,000 ML IV ONE ×3 (16:38→18:00)
[2024-06-03 16:51] LABS: A/G RATIO 0.73; ALBUMIN 2.4 g/dL (3.4-5.0); BILIRUBIN TOTAL 1.4 mg/dL (0.2-1.0); CALCIUM 8.7 mg/dL (8.5-10.1); EST CRCL DRUG DOSING (CG) 52.84 mL/min; PROTEIN TOTAL,TP 5.7 g/dL (6.4-8.2)
[2024-06-03 17:22] LABS: APPEARANCE,URINE CLOUDY (CLEAR); BILIRUBIN,URINE NEGATIVE (NEGATIVE); COLOR,URINE YELLOW (YELLOW); GLUCOSE,URINE NEGATIVE (NEGATIVE); KETONES,URINE NEGATIVE (NEGATIVE); LEUKOCYTE ESTERASE,URINE MODERATE (NEGATIVE); NITRITE,URINE POSITIVE (NEGATIVE); OCCULT BLOOD,URINE MODERATE (NEGATIVE); PH,URINE 7.5 (5.0-8.0); PROTEIN,URINE TRACE mg/dL (NEGATIVE); UROBILINOGEN,URINE 0.2 EU/dL (0.2)
[2024-06-03] MEDS: cefTRIAXone 2 GM Vial IVPUSH ONE (17:24)
[2024-06-03] MEDS: Fluconazole/Normal Saline 200 MG in Premix Bag 1 BAG IV SCH (17:25)
[2024-06-03 17:27] LABS: BACTERIA,URINE MODERATE /HPF (NOT SEEN); MUCUS,URINE FEW /LPF (NOT SEEN); RBC,URINE 30-40 /HPF (NOT SEEN); RENAL EPITHELIAL CELLS,URINE FEW /HPF (NOT SEEN); SQUAMOUS EPITHELIAL CELLS,UR NOT SEEN /HPF (NOT SEEN); WBC,URINE 30-40 /HPF (NOT SEEN)
[2024-06-03] MEDS: Norepinephrine Bit/D5W Premix 250 ML IV SCH (18:24)
== END 2024-06-03 19:58 | disposition short-term general hospital (02) ==
LOC: VM.ED 16:12 → SUPCPDRO 16:12 → VM.ED 19:58
DX: A41.9 Sepsis, unspecified organism (principal); E87.20 Acidosis, unspecified; G93.40 Encephalopathy, unspecified; E87.1 Hypo-osmolality and hyponatremia; N39.0 Urinary tract infection, site not specified; B37.9 Candidiasis, unspecified; R09.02 Hypoxemia; I10 Essential (primary) hypertension; E78.00 Pure hypercholesterolemia, unspecified; Z79.899 Other long term (current) drug therapy; Z79.01 Long term (current) use of anticoagulants; Z96.0 Presence of urogenital implants
CPT/HCPCS: 36415; 51702; 71045; 80053; 81001; 82550; 82947; 83605; 84484; 85025; 87040; 87086; 87088; 87147; 93005; 94660; 96365; 96366; 96367; 96375; 99285-25; J0696; J1450; J7030